=== PATIENT | female | born 1990 | race Caucasian/White ===

== ENCOUNTER → 2018-03-29 15:13 | Outpatient (CLI) | payer OTHER, SELFPAY ==
[2016-11-13 22:28] VITALS: BMI 23.5
[2018-03-29 16:47] LABS: Color, Urine Yellow (Yellow); Glucose, Dipstick Normal (Normal); Ketone-Dipstick Negative (Negative); Leukocyte Esterase-Dipstick Negative /ul (Negative); Nitrite-Dipstick Negative (Negative); Occult Blood-Urine Negative /ul (Negative); Protein-Dipstick Negative (Negative); Urine Bilirubin Dipstick Negative (Negative); Urine Clarity Clear (Clear); Urine Urobilinogen Normal (Normal)
[2018-03-29 17:10] LABS: Amphetamine Urine VISTA NEGATIVE (<1000 ng/mL); Barbiturate Urine VISTA NEGATIVE (< 200 ng/mL); Benzodiazepine Urine VISTA NEGATIVE (< 200 ng/mL); Cocaine Urine VISTA NEGATIVE (< 300 ng/mL); Ecstacy Urine VISTA NEGATIVE (< 500 ng/mL); Methadone Urine VISTA NEGATIVE (< 300 ng/mL); PCP Urine VISTA NEGATIVE (< 25 ng/mL); THC Urine VISTA NEGATIVE (< 50 ng/mL); Vista UDS pH Range 6
[2018-03-29 17:44] LABS: Absolute Lymphocyte Count 2.31 X10^3/ul (0.83-4.51); Absolute Neutrophil Count 8.3 X10^3/uL (2.0-7.7); Basophil# 0.02 X10^3/uL; Basophil% 0.2 % (0-1); Eosinophil# 0.14 X10^3/uL; Eosinophils% 1.2 % (0-5); Hematocrit 38.1 % (37-47); Hemoglobin 12.5 g/dl (12.0-15.0); Lymphocyte # 2.31 X10^3/ul (4.0); Lymphocyte % 20.6 % (19-41); Mean Corp Hgb Conc 32.8 g/gl (32-36); Mean Corpuscular Hgb 29.3 pg (27.0-32.0); Mean Corpuscular Volume 89.2 fL (81-99); Mean Platelet Vol. 9.8 fl (6.2-12.0); Monocyte# 0.43 X10^3/uL; Monocyte% 3.8 % (0-10); Neutrophil # 8.31 X10^3/uL (2.7-7.7); Neutrophil % 73.9 % (47-70); Platelet Count 280 K/mm3 (150-450); RBC Distribution Width CV 13.2 % (11.6-14.6); RBC Distribution Width SD 41.9 fl (35.1-43.9); Red Blood Count 4.27 M/mm3 (4.2-5.4); White Blood Count 11.2 K/mm3 (4.4-11.0)
[2018-03-29 17:47] LABS: POSITIVE COUNT NO; POSITIVE DIFFERENTIAL NO; POSITIVE MORPHOLOGY NO
[2018-03-29 18:04] LABS: Thyroid Stim Hormone (TSH) 1.56 uIU/mL (0.358-3.74)
[2018-03-29 18:20] LABS: Chlamydia Trachomatis by PCR Negative (Negative); Neisserai gonorrhoeae by PCR Negative (Negative); Probe Check PASS; Sample Adequacy Control PASS; Specimen Processing Control PASS
[2018-03-29 18:54] LABS: HIV - WCH Non-Reactive (Nonreactive); Rubella IgG 74.3 IU/mL
[2018-04-03 03:07] LABS: AFP MoM Value 0.89 (.); AFP Value-EIA 33.1 ng/mL (.); Comment Report (.); DIA MoM Value 1.08 (.); DSR (By Age) 820 (.); DSR (Second Trimester) 2600 (.); Gestat. Age Based On As provided (.); Gestational Age 15.6 WEEKS (.); Insulin Dep Diabetes No (.); Maternal Age At EDD 28.5 yr (.); hCG MoM 1.72 (.)
[2018-04-03 11:35] LABS: HEPATITIS B SURFACE AG Negative (Negative); Hep C Antibodies <0.1 s/co ratio (0.0-0.9)
[2018-04-04 15:18] LABS: HPV HC, High Risk Positive (Negative); HPV Reflexed? YES, CHARGE PATIENT
[2018-04-05 07:38] LABS: Prenatal RPR NONREACTIVE (NONREACTIVE)
== END ==
PROVIDERS: Visit Provider Obstetrics & Gynecology
DX: Z12.4 Encounter for screening for malignant neoplasm of cervix (principal); Z11.3 Encounter for screening for infections with a predominantly sexual mode of transmission; Z34.82 Encounter for supervision of other normal pregnancy, second trimester
CPT/HCPCS: 36415; 80307; 81002; 82105; 82677; 84443; 84702; 85025; 86336; 86703; 86762; 86803; 87340; 87491; 87591; 87624; 88175; G0145

== ENCOUNTER → 2018-06-24 09:32 | Outpatient (CLI) | payer MEDICAID, SELFPAY ==
[2018-06-24 10:56] LABS: Glucose Challenge Gest 1H 50g 109 mg/dL (70-140)
[2018-06-24 11:05] LABS: Hematocrit 31.8 % (37-47); Hemoglobin 9.9 g/dl (12.0-15.0); Mean Corp Hgb Conc 31.1 g/gl (32-36); Mean Corpuscular Hgb 27.1 pg (27.0-32.0); Mean Corpuscular Volume 87.1 fL (81-99); Mean Platelet Vol. 9.5 fl (6.2-12.0); Platelet Count 218 K/mm3 (150-450); RBC Distribution Width CV 13.3 % (11.6-14.6); RBC Distribution Width SD 43.1 fl (35.1-43.9); Red Blood Count 3.65 M/mm3 (4.2-5.4); White Blood Count 10.3 K/mm3 (4.4-11.0)
[2018-06-24 11:15] LABS: Scan Indicated on CBC? Y/N NO
== END ==
PROVIDERS: Visit Provider Obstetrics & Gynecology
DX: Z34.83 Encounter for supervision of other normal pregnancy, third trimester (principal)
CPT/HCPCS: 36415; 82950; 85027

== ENCOUNTER → 2018-08-16 14:04 | Outpatient (CLI) | payer MEDICAID, SELFPAY ==
[2016-11-13 22:28] VITALS: BMI 23.5
== END ==
PROVIDERS: Visit Provider Obstetrics & Gynecology
DX: Z36.85 Encounter for antenatal screening for Streptococcus B (principal)
CPT/HCPCS: 87081

== ENCOUNTER 2018-09-14 16:20 | Inpatient (IN) | payer MEDICAID, SELFPAY ==
[2018-09-14 15:43] VITALS: BMI 25.6
[2018-09-14 16:16] LABS: ROM Internal Control Test YES-OK TO RESULT pt. (Internal QC)
[2018-09-14 16:17] LABS: ROM Patient Test POSITIVE (Negative)
[2018-09-14] MEDS: Lactated Ringers 1,000 ML 50 ML IV ×3 (16:35→20:33)
[2018-09-14 16:54] LABS: Absolute Lymphocyte Count 2.12 X10^3/ul (0.83-4.51); Absolute Neutrophil Count 11.4 X10^3/uL (2.0-7.7); Basophil# 0.02 X10^3/uL; Basophil% 0.1 % (0-1); Eosinophil# 0.06 X10^3/uL; Eosinophils% 0.4 % (0-5); Hematocrit 38.3 % (37-47); Hemoglobin 12.9 g/dl (12.0-15.0); Lymphocyte # 2.12 X10^3/ul (4.0); Lymphocyte % 14.7 % (19-41); Mean Corp Hgb Conc 33.7 g/gl (32-36); Mean Corpuscular Hgb 30.1 pg (27.0-32.0); Mean Corpuscular Volume 89.5 fL (81-99); Mean Platelet Vol. 10.1 fl (6.2-12.0); Monocyte# 0.79 X10^3/uL; Monocyte% 5.5 % (0-10); Neutrophil # 11.37 X10^3/uL (2.7-7.7); Neutrophil % 78.9 % (47-70); Platelet Count 124 K/mm3 (150-450); RBC Distribution Width CV 15.9 % (11.6-14.6); RBC Distribution Width SD 51.4 fl (35.1-43.9); Red Blood Count 4.28 M/mm3 (4.2-5.4); White Blood Count 14.4 K/mm3 (4.4-11.0)
[2018-09-14 17:04] LABS: POSITIVE COUNT NO; POSITIVE DIFFERENTIAL NO; POSITIVE MORPHOLOGY NO
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
[2018-09-14] MEDS: fentaNYL-bupivacaine (epidural) 100 ML BAG EPIDURAL (18:17)
--- NOTE | 2018-09-14 19:03 | PCM.PN.BLA ---
Progress Note 39 5/7 wk labor SROM Epidural placed. Tapia in palce AVSS EFM 130-140s avg variability. accels noted. category I tracing UCs q 1 1/2-4 mins CX: 6/80/ -1 at 1854 A/P: 37 5/7 wk SROM labor. Adequate progress Epidural in place now. Anticipate
[2018-09-14] MEDS: Oxytocin 30 units/NS 500 ml 30 UNITS/500 ML IV.SOLN 334 UNITS IV (22:10)
[2018-09-14] MEDS: Oxytocin 30 units/NS 500 ml 30 UNITS/500 ML IV.SOLN 167 UNITS IV (22:40)
[2018-09-15 00:13] VITALS: BP 102/53; PULSE 75; RESP 16; TEMP 36.6; O2SAT 100
[2018-09-15 03:16] VITALS: BP 110/59; PULSE 108; RESP 16; TEMP 37.3; O2SAT 96
--- NOTE | 2018-09-15 07:43 | DCINST_ITS ---
Discharge Diet: No Restrictions Discharge Activity: May Shower, May Take a Tub Bath May resume sexual activity in: 4-6 weeks Additional Activity Instructions:: Nothing in the vagina for 4-6 weeks. You may return to work/school in 6 weeks. Additional Instructions: If you experience any of the following, contact your healthcare provider. * Bleeding that soaks a pad every hour for 2 hours * Fever 100.4 or higher * Unrelieved abdominal pain * Problems urinating (including inability to urinate or burning while urinating). * Visual changes * Severe headache * Flu-like symptoms * Pain or redness in one of both of your breasts * Pain, warmth, tenderness or swelling in your legs, especially the calf area * Frequent nausea and vomiting * Symptoms of depression or anxiety If you experience any of the following, call 911 or go to the nearest Emergency Room. * Chest pain * Problems breathing * Seizure activity * Partial or complete paralysis of a body part, slurred speech, weakness or drooping of the face, or a sudden inability to walk or hold your balance Allergies/Adverse Reactions: Allergies No Known Allergies Allergy (Verified 09/14/18 16:02) Medications to take at Discharge No122/Iron/Folic Acid [ Multi Tablet] 1 tab PO DAILY 11/13/16 Ferrous Sulfate [Iron] 325 mg PO DAILY 09/14/18 Please Follow Up With: Brisa Faulkner MD - [phone] When: Call to make an appointment with your doctor in 6 weeks. Test Results: Test results from this visit will be discussed in further detail at your follow- up appointment, if applicable. Proposed Discharge Date: 09/17/18
--- NOTE | 2018-09-15 07:43 | PCM.DCVAG ---
Discharge Diet: No Restrictions Discharge Activity: May Shower, May Take a Tub Bath May resume sexual activity in: 4-6 weeks Additional Activity Instructions:: Nothing in the vagina for 4-6 weeks. You may return to work/school in 6 weeks. Additional Instructions: If you experience any of the following, contact your healthcare provider. Bleeding that soaks a pad every hour for 2 hours Fever 100.4 or higher Unrelieved abdominal pain Problems urinating (including inability to urinate or burning while urinating). Visual changes Severe headache Flu-like symptoms Pain or redness in one of both of your breasts Pain, warmth, tenderness or swelling in your legs, especially the calf area Frequent nausea and vomiting Symptoms of depression or anxiety If you experience any of the following, call 911 or go to the nearest Emergency Room. Chest pain Problems breathing Seizure activity Partial or complete paralysis of a body part, slurred speech, weakness or drooping of the face, or a sudden inability to walk or hold your balance Allergies/Adverse Reactions: Allergies No Known Allergies Allergy (Verified 09/14/18 16:02) Medications to take at Discharge No122/Iron/Folic Acid [ Multi Tablet] 1 tab PO DAILY 11/13/16 Ferrous Sulfate [Iron] 325 mg PO DAILY 09/14/18 Please Follow Up With: Brisa Faulkner MD - [phone] When: Call to make an appointment with your doctor in 6 weeks. Test Results: Test results from this visit will be discussed in further detail at your follow-up appointment, if applicable. Proposed Discharge Date: 09/17/18
--- NOTE | 2018-09-15 07:45 | PCM.OPRPT ---
Vaginal Delivery Maternal Presentation: Active Labor 39 5/7 wk labor Final STACIA: 09/16/18 Final STACIA Source: US <20 weeks Gestational age: 39 Weeks and 5 Days Date of Procedure: 09/14/18 Pre-Operative Diagnosis: 39 5/7 wk labor Post-Operative Diagnosis: Same Surgery/ Procedure Performed: Spontaneous Vaginal Delivery Type of Anesthesia: Epidural Description of Procedure: of a nolasco viable female over intact perineum to 2nd deg laceration.. Head delivered OA. OP and nares bulb suctioned on perineum. No nuchal cord noted. Shoulders delivered easily. to maternal abdomen with spont cry. Ap 8/9 Delayed cord clamping. Cord clamped times two and cut. Placenta delivered easily by spont expulsion, expression.3V normal appearing. intact with trailing membranes. 2nd deg posterior perineal laceration hemostatic, reapproximated with 3-0 Vicryl Rapide No other lacerations, or repair required. Ray Sudhir counts correct EBL 200 cc. Pt and tolerated delivery well. to recovery, stable condition Cord Vessel Description: 3 Vessels Cord Entanglement: None Drain: Tapia to straight drain Estimated Blood Loss: 200 Infant A gender: Female (1 minute): 8 (5 minute): 9 Episiotomy Description: None Laceration: Midline, 2nd degree - reapprox w 3-0 Vicryl Rapide Medications given after delivery: IV Pitocin Complications: None
--- NOTE | 2018-09-15 08:20 | PN.OBGYN_ITS ---
Subjective: PPD#1 Doing well Tired. No concerns voiced otherwise. Pain control adequate - Physical Exam General: Alert, Oriented x3, Cooperative, No apparent distress HEENT: Atraumatic Neck: Supple Abdomen: Soft - Fundus firm, NT , inferior to umbilicus Psych/Mental Status: Normal Affect Vital Signs Temp Pulse Resp BP Pulse Ox 99.2 F H 108 H 16 110/59 L 96 09/15/18 03:16 09/15/18 03:16 09/15/18 03:16 09/15/18 03:16 09/15/18 03:16 Oxygen Delivery Method Room Air Weight: 61.6 kg Body Mass Index (BMI) 25.6 Intake and Output for Last 24 Hours 09/13/18 09/14/18 09/15/18 23:59 23:59 23:59 Intake Total 2574 / 2574 Output Total 125 / 125 1999 Balance -125 / -125 574 / 574 Laboratory Tests Past 24 Hrs 09/14/18 09/14/18 09/14/18 15:44 16:35 16:35 WBC 14.4 H RBC 4.28 Hgb 12.9 Hct 38.3 MCV 89.5 MCH 30.1 MCHC 33.7 RDW 15.9 H RDW Differential 51.4 H Plt Count 124 L MPV 10.1 Immature Gran % (Auto) 0.400 Neut % (Auto) 78.9 H Lymph % (Auto) 14.7 L [place] % (Auto) 5.5 Eos % (Auto) 0.4 Baso % (Auto) 0.1 Absolute Neuts (auto) 11.4 H Absolute Lymphs (auto) 2.12 Total Counted Not Reportable Vag Amniotic Fld Detect POSITIVE H Blood Type A POSITIVE Antibody Screen NEGATIVE Medical Necessity - Tobacco Use Smoking Status: Never smoker Assessment/Plan PPOD#1 Stable. Continue routine pp care.
[2018-09-15] MEDS: Prenatal Vits Tablet 1 TABLET PO (09:40)
[2018-09-15 09:44] VITALS: BP 106/69; PULSE 98; RESP 16; TEMP 37.1; O2SAT 96
[2018-09-15 12:00] VITALS: BP 117/67; PULSE 110; RESP 16; TEMP 37.1; O2SAT 96
[2018-09-15 15:50] VITALS: BP 103/63; PULSE 104; RESP 16; TEMP 37.4; O2SAT 94
[2018-09-15 19:50] VITALS: BP 112/69; PULSE 101; RESP 18; TEMP 36.9
[2018-09-16 02:12] VITALS: BP 101/57; PULSE 83; RESP 16; TEMP 37.1
[2018-09-16 08:17] VITALS: BP 104/68; PULSE 89; RESP 16; TEMP 36.7; O2SAT 98
--- NOTE | 2018-09-16 08:53 | PCM.PN.OB ---
Subjective: PPD#2 Doing well. Minimal pain. Some difficulty with nursing and plans to see service consultant prior to dischg home. Otherwise no concerns. Objective: Sitting up in bed. - Physical Exam General: Alert, Oriented x3, Cooperative, No apparent distress HEENT: Atraumatic, EOMI Abdomen: Soft - Fundus firm NT inferior to umbilicus Psych/Mental Status: Normal Affect Vital Signs Temp Pulse Resp BP Pulse Ox 98.1 F 89 16 104/68 98 09/16/18 08:17 09/16/18 08:17 09/16/18 08:17 09/16/18 08:09/16/18 08:17 Oxygen Delivery Method Room Air Weight: 61.6 kg Body Mass Index (BMI) 25.6 Intake and Output for Last 24 Hours 09/14/18 09/15/18 09/16/18 23:59 23:59 23:59 Intake Total 2574 / 2574 Output Total 125 / 125 1999 Balance -125 / -125 574 / 574 Medical Necessity - Tobacco Use Smoking Status: Never smoker Assessment/Plan PPOD#2 Stable. Dischg home today. information systems consultant requested prior to dischg. RTO in 6 wk for pp check.
[2018-09-16] MEDS: Prenatal Vits Tablet 1 TABLET PO (09:42)
[2018-09-16 13:40] VITALS: BP 101/70; PULSE 86; RESP 16; TEMP 36.9; O2SAT 98
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
== END 2018-09-16 14:30 | disposition home or self-care (01) | DRG 560 ==
LOC: WPOUT 16:25
PROVIDERS: Admitting Provider Obstetrics & Gynecology; Visit Provider Obstetrics & Gynecology
DX: O99.02 Anemia complicating childbirth (principal); D64.9 Anemia, unspecified; O70.1 Second degree perineal laceration during delivery; Z79.899 Other long term (current) drug therapy; Z87.442 Personal history of urinary calculi; Z3A.39 39 weeks gestation of pregnancy; Z37.0 Single live birth
CPT/HCPCS: 59025; 59050; 84112; 85025; 86850; 86900; 99218; J7120; G0378

== ENCOUNTER 2021-10-11 16:46 | Emergency (ER) | payer BC, MEDICAID, SELFPAY ==
[2021-10-11 16:47] VITALS: BP 147/101; PULSE 121; RESP 18; TEMP 36.4; O2SAT 100; BMI 19.3
--- NOTE | 2021-10-11 17:50 | CT_ITS ---
STUDY: CT ABDOMEN AND PELVIS WITH CONTRAST ENHANCEMENT OF 1846 HOURS ON 10/11/2021 REASON FOR EXAM: 31-year-old female with right lower quadrant pain. RADIATION DOSAGE (If Supplied By Facility): CTDIvol = ( 7.50 ) mGy, DLP = ( 232.93 ) mGycm. TECHNIQUE: Transaxial images were obtained from the dome of the diaphragm to the symphysis pubis without oral contrast. 100 mL of Isovue-300 was administered intravenously. Sagittal and coronal images were reconstructed. Individualized dose optimization techniques were used for this CT. COMPARISON: None. FINDINGS: The visualized lung bases are unremarkable. The visualized portions of the heart are within normal limits. Normal liver. Normal gallbladder and extrahepatic biliary system; no cholelithiasis or cholecystitis.. Normal spleen. Normal pancreas; no pancreatitis or pancreatic mass lesions.. Normal bilateral adrenal glands. Mildly ptotic right kidney. Otherwise, normal kidneys without obstructive uropathy or pyelonephritis. Normal visualized stomach. Normal small intestine. No diverticulitis, colitis, or intestinal obstruction. The appendix is visualized and appears normal; no appendicitis. Appendix is best visualized on sagittal images 51 through 54.. Normal abdominal aorta. Normal inferior vena cava. Normal retroperitoneum. Normal urinary bladder with a mildly thickened wall that may be indicative of a cystitis.. Mildly enlarged heterogeneous uterus with endometrial cavity measuring 19 mm. Presence of a 3.6 cm in diameter right ovarian cyst. Presence of a 3.3 cm in diameter left ovarian cyst. Normal abdominal wall. Normal osseous structures. CT/Abdomen/Pelvis W IV Cont ONLY IMPRESSION: 1. 3.6 cm in diameter right ovarian cyst and 3.3 cm in diameter left ovarian cyst. 2. Mildly enlarged heterogeneous uterus with an endometrial cavity measuring 19 mm. 3. No appendicitis, diverticulitis, colitis, or intestinal obstruction. 4. Mildly ptotic right kidney. Otherwise, normal kidneys without obstructive uropathy or pyelonephritis. 5. No cholecystitis or pancreatitis. 6. Mild lumbar lordosis. No osseous abnormalities. Electronically Signed: Madi Matias MD at 20:08 EDT ,
--- NOTE | 2021-10-11 17:52 | ED.VIS.GI ---
HPI HPI - GI History of Present Illness Chief Complaint: Abd Pain Informant: patient Abdominal Pain/Flank Pain Onset: Days Context: Gradual Onset Timing: Continuous Quality: Aching and Cramping Location: RLQ Current Severity: Mild Maximum Severity: Moderate Worsened by: Nothing Relieved by: Nothing Nausea/Vomiting/Emesis GI Symptom: Positive for Nausea; Negative for Vomiting Onset: Today Severity: Mild Diarrhea/Melena/Hematochezia GI Symptom: Negative for Diarrhea, Melena or Hematochezia Associated Symptoms Associated Symptoms: Negative for Dysuria, Frequency, Hematuria or Urgency LMP: Approximately 3 weeks ago. Narrative Narrative: 31-year-old female history of prior ovarian cyst. G2, P2 Ab0. Prior kidney stone. Symptoms have right lower quadrant abdominal pain since around last Sunday. Nausea but no vomiting or diarrhea. No fever. No dysuria or hematuria. Last menstrual period was about 3 weeks ago. Denies any vaginal bleeding or discharge. Still has her appendix. Denies any trauma. No fever or weight loss. Prior similar symptoms: Yes Recent Illness/Hospitalization: No PFSH PFSH Medical History Ovarian cyst no medical history Allergy/AdvReac Type Severity Reaction Status Date / Time No Known Allergies Allergy Verified 09/14/18 16:02 Social History Smoking Status: Never smoker ROS ROS ED ROS Narrative Abdominal pain. Nausea. Review of Systems ROS Unobtainable: Denies due to encephalopathy Constitutional Constitutional ED: Denies chills or fever(s) ENT ENT ED: Denies ear pain Cardiovascular Cardiovascular: Denies chest pain Respiratory/Chest Respiratory/Chest: Denies cough or dyspnea Gastrointestinal Gastrointestinal: Reports abdominal pain and nausea; Denies constipation, diarrhea, melena or vomiting Genitourinary Genitourinary ED: Denies dysuria or hematuria Musculoskeletal Musculoskeletal: Denies arthralgias Integumentary Denies abscess Neurologic Neurologic: Denies headache(s) Psychiatric Psychiatric: Denies anxiety Endocrine Endocrinology: Denies polydipsia Hematologic/Lymphatic Hematologic/Lymphatic: Denies easy bleeding Allergic/Immunologic Allergic/Immunologic ED: Denies mouth swelling EXAM Physical Exam Narrative Exam Narrative: 31-year-old female no acute distress sitting upright in bed. Vital signs are stable afebrile. H EENT exam unremarkable. Moist remembers. Neck nontender. Lungs clear to auscultation. Heart regular rhythm no murmur. Rate about 110. Abdomen soft mild tenderness right lower quadrant. Not specifically McBurney's point. No peritoneal signs. No hernia or, no mass. No obstruction. Right upper, left upper and left lower quadrants are unremarkable. Moving all 4 extremities. Back nontender. Neurologically awake and alert. Const Vital Signs: 10/11/21 16:47 10/11/21 16:47 Temperature 97.5 F L 97.5 F L Temperature Source Temporal Temporal Pulse Rate 121 H 121 H Respiratory Rate 18 18 Blood Pressure 147/101 H 147/101 H Blood Pressure Mean 116 116 Pulse Ox 100 100 Oxygen Delivery Method Room Air Room Air Positive well nourished and well developed; Negative for obese, cachectic, contractures or unkempt General Appearance ED: well developed and NAD; Negative for unkempt, cachectic, contractures or pallor Nutritional Appearance: Negative for cachectic or obese HEENT Reports moist mucous membranes normocephalic and atraumatic; Negative for trauma or tenderness Eyes PERRL and EOMs intact bilaterally General Eye ED: Negative for pale conjunctiva or scleral icterus Neck no lymphadenopathy, supple and no JVD General: Negative for tenderness Carotids: Negative for other Lymph Lymphatic: Negative for other Resp normal respiratory effort and clear to auscultation bilaterally Effort and Inspection: Negative for respiratory distress Auscultation: Negative for rales, rhonchi or wheezes Cardio regular rhythm, S1 normal heart sound, S2 normal heart sound and no murmurs; Negative for regular rate Rate: tachycardic Rhythm: Negative for abnormal rhythm GI non-distended and no masses; Negative for non-tender Inspection: Negative for abdominal distention Auscultation: normoactive bowel sounds Palpation: soft and tender; Negative for guarding, rigid, hepatomegaly, splenomegaly, hernia, mass or pulsatile mass Back/Spine no CVA tenderness General Back: Negative for CVA tenderness Cervical Spine: Negative for cervical spine tenderness Thoracic Spine / Upper Back: Negative for thoracic spinal tenderness Lumbar Spine / Lower Back: Negative for lumbar spinal tenderness Coccyx: Negative for other Extremity full ROM General Extremety ED: Negative for edema or tenderness General Extremity: Negative for edema Neuro CN's II-XII intact bilaterally, moves all extremities and no sensory deficits noted Sensorium / Orientation: alert, oriented to person, oriented to place and oriented to time; Negative for orientation impaired, confused, lethargic or stuporous Motor Exam: strength 5/5 throughout Psych mental status grossly normal and thought process normal Appearance: Negative for unkempt Attitude: No agitated Mood & Affect: Negative for depressed or anxious Skin no wounds General Skin Exam: Negative for jaundice or pallor Lesions: no lesions Rashes: no rashes Trauma: Negative for abrasion Nails: Negative for discolored MDM MDM MDM Narrative Medical decision making narrative: 31-year-old female right lower quadrant abdominal pain. Differential includes ovarian cyst, UTI, or ectopic or appendicitis. Clinically I think this might be an ovarian cyst. CAT scan labs are pending. She did not want thing for pain and nausea. Repeat exam patient will be discharged home. I went over her test results and CAT scan with her. Tylenol Motrin for pain for ovarian cyst. 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 Lab Data Attestation: I reviewed the patient's lab results. Lab results narrative: CBC normal white count of 10 H&H of 13 and 40. Platelets 251. Electrolytes gap is 6 normal BUN and creatinine. Normal liver enzymes. Serum test negative. Urinalysis negative. No white nor red cells. No nitrites. CAT scan shows a 3.6 cm right ovarian cyst and a 3.3 cm left ovarian cyst. Otherwise no acute abnormality. No appendicitis. Labs: Laboratory Results - last 24 hr 10/11/21 10/11/21 10/11/21 17:58 17:58 17:58 WBC 10.5 RBC 4.37 Hgb 13.6 Hct 40.8 MCV 93.4 MCH 31.1 MCHC 33.3 RDW Std Deviation 45.3 H RDW Coeff of Nayan 13.2 Plt Count 251 MPV 9.5 Immature Gran % (Auto) 0.200 Neut % (Auto) 66.1 Lymph % (Auto) 26.0 [place] % (Auto) 6.1 Eos % (Auto) 1.1 Baso % (Auto) 0.5 Absolute Neuts (auto) 7.0 Absolute Lymphs (auto) 2.74 Nucleated RBC % 0 Sodium 136 Potassium 4.0 Chloride 103 Carbon Dioxide 27.0 Anion Gap 6 BUN 14 Creatinine 0.65 Estim Creat Clear Calc 91.86 Est GFR (MDRD) Af Amer 137 Est GFR (MDRD) Non-Af 113 BUN/Creatinine Ratio 21.6 H Glucose 101 Calcium 8.9 Total Bilirubin 0.70 AST 14 L ALT 19 Alkaline Phosphatase 61 Total Protein 7.0 Albumin 3.6 Globulin 3.4 Albumin/Globulin Ratio 1.1 Serum , Qual NEGATIVE Urine Color Urine Clarity Urine pH Ur Specific [place] Urine Protein Urine Glucose (UA) Urine Ketones Urine Occult Blood Urine Nitrite Urine Bilirubin Urine Urobilinogen Ur Leukocyte Esterase Urine RBC Urine WBC Ur Squamous Epith Cells Urine Bacteria Urine Mucus 10/11/21 18:25 WBC RBC Hgb Hct MCV MCH MCHC RDW Std Deviation RDW Coeff of Nayan Plt Count MPV Immature Gran % (Auto) Neut % (Auto) Lymph % (Auto) [place] % (Auto) Eos % (Auto) Baso % (Auto) Absolute Neuts (auto) Absolute Lymphs (auto) Nucleated RBC % Sodium Potassium Chloride Carbon Dioxide Anion Gap BUN Creatinine Estim Creat Clear Calc Est GFR (MDRD) Af Amer Est GFR (MDRD) Non-Af BUN/Creatinine Ratio Glucose Calcium Total Bilirubin AST ALT Alkaline Phosphatase Total Protein Albumin Globulin Albumin/Globulin Ratio Serum , Qual Urine Color Yellow Urine Clarity Clear Urine pH 6.0 Ur Specific [place] 1.020 Urine Protein 15 H Urine Glucose (UA) Normal Urine Ketones 15 H Urine Occult Blood Negative Urine Nitrite Negative Urine Bilirubin Negative Urine Urobilinogen 1 H Ur Leukocyte Esterase Negative Urine RBC 0-5 SEEN Urine WBC 0 SEEN Ur Squamous Epith Cells 5-10 SEEN Urine Bacteria 2+ Urine Mucus 0 SEEN Radiography Diagnostic Testing: Clinical Impression(s) from Imaging Studies Abdomen/Pelvis CT 10/11/21 17:50 IMPRESSION: 1. 3.6 cm in diameter right ovarian cyst and 3.3 cm in diameter left ovarian cyst. 2. Mildly enlarged heterogeneous uterus with an endometrial cavity measuring 19 mm. 3. No appendicitis, diverticulitis, colitis, or intestinal obstruction. 4. Mildly ptotic right kidney. Otherwise, normal kidneys without obstructive uropathy or pyelonephritis. 5. No cholecystitis or pancreatitis. 6. Mild lumbar lordosis. No osseous abnormalities. Electronically Signed: Madi Matias MD at 20:08 EDT , Discharge Plan Triage Chief Complaint: Abd Pain ED Provider: Mickey Sullivan Dx/Rx/DC Orders Clinical Impression: Ovarian cyst, Abdominal pain Instructions: ED Ovarian Cyst Primary Care Provider: Care Physician,No Primary Referrals: Rayna Turcios MD [Med Staff - Active Staff] - 1 Week if not improving Care Physician,No Primary [Primary Care Provider] - Activity Restrictions/Additional Instructions: Motrin and Tylenol for pain. You have a 3.6 cm ovarian cyst on the right and a 3.3 on the left. He should progressively improve. 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 Disposition Disposition: Home, Self Care
[2021-10-11 18:11] LABS: Absolute Lymphocyte Count 2.74 X10^3/uL (0.83-4.51); Basophil# 0.05 X10^3/uL; Basophil% 0.5 % (0-1); Eosinophil# 0.12 X10^3/uL; Eosinophils% 1.1 % (0-5); Hematocrit 40.8 % (37-47); Hemoglobin 13.6 g/dL (12.0-15.0); Lymphocyte # 2.74 X10^3/ul (0.83-4.51); Mean Corp Hgb Conc 33.3 g/dL (32-36); Mean Corpuscular Hgb 31.1 pg (27.0-32.0); Mean Corpuscular Volume 93.4 fL (81-99); Mean Platelet Vol. 9.5 fl (6.2-12.0); Monocyte# 0.64 X10^3/uL; Monocyte% 6.1 % (0-10); NRBC Flagged by Analyzer 0 % (0-5); Neutrophil # 6.95 X10^3/uL (2.7-7.7); Neutrophil % 66.1 % (47-70); Platelet Count 251 K/mm3 (150-450); RBC Distribution Width CV 13.2 % (11.6-14.6); RBC Distribution Width SD 45.3 fl (35.1-43.9); Red Blood Count 4.37 M/mm3 (4.2-5.4); White Blood Count 10.5 K/mm3 (4.4-11.0)
[2021-10-11 18:32] LABS: ALB/GLOB Ratio 1.1 RATIO (0.9-2.4); AST(SGOT) 14 U/L (15-37); Alanine Aminotransfer ALT/SGPT 19 U/L (13-56); Albumin, Serum 3.6 g/dL (3.2-5.0); Alkaline Phosphatase 61 U/L (45-117); Anion Gap 6 (5-15); BUN 14 mg/dL (7-18); BUN/Creat Ratio 21.6 RATIO (10-20); Calcium,Total 8.9 mg/dL (8.5-10.1); Chloride 103 mmol/L (98-107); Creatinine, Serum 0.65 mg/dL (0.55-1.02); EST Glomerular Filtration Rate 113 mL/min (>60); Est Glom Filt Rate - Afr Amer 137 mL/min (>60); Estimated Creatinine Clearance 91.86 ml/min; Globulin 3.4 g/dL (2.2-4.2); Glucose 101 mg/dL (74-106); Sodium Level 136 mmol/L (136-145)
[2021-10-11 18:47] LABS: Mucous, Urine 0 SEEN /hpf (<or=2+); White Blood Cells 0 SEEN /hpf (0-5)
[2021-10-11 18:51] LABS: Color, Urine Yellow (Yellow); Glucose, Dipstick Normal (Normal); Ketone-Dipstick 15 mg/dl (Negative); Leukocyte Esterase-Dipstick Negative /ul (Negative); Nitrite-Dipstick Negative (Negative); Occult Blood-Urine Negative /ul (Negative); Protein-Dipstick 15 mg/dl (Negative); Urine Bilirubin Dipstick Negative (Negative); Urine Clarity Clear (Clear); Urine Urobilinogen 1 mg/dl (Normal)
[2021-10-11 19:08] LABS: Bacteria 2+ /hpf (None Seen); Red Blood Cells-Urine 0-5 SEEN /hpf (0-5); Squamous Epithelial Cells - UA 5-10 SEEN /hpf (5-10)
[2021-10-11 19:21] LABS: Internal QC Validated? YES +Cl - CLEAR BKGD; Pregnancy, Serum, hCG Quali. NEGATIVE Negative
[2021-10-11 20:42] VITALS: BP 116/85; PULSE 92; RESP 18; O2SAT 100
== END 2021-10-11 20:43 | disposition home or self-care (01) ==
PROVIDERS: Emergency Provider Emergency Medicine; Visit Provider Emergency Medicine
DX: N83.201 Unspecified ovarian cyst, right side (principal); N83.202 Unspecified ovarian cyst, left side; Z87.442 Personal history of urinary calculi; R10.9 Unspecified abdominal pain
CPT/HCPCS: 74177; 80053; 81001; 84703; 85025; 99283; Q9967; A4216

== ENCOUNTER 2024-04-29 22:27 | Emergency (ER) | payer MEDICAID, SELFPAY ==
[2024-04-29 22:28] VITALS: BP 142/104; PULSE 110; RESP 16; TEMP 35.7; O2SAT 99; BMI 21.7
[2024-04-29 22:54] LABS: Absolute Lymphocyte Count 4.27 X10^3/uL (0.83-4.51); Absolute Neutrophil Count 4.4 X10^3/uL (2.0-7.7); Basophil# 0.12 X10^3/uL; Basophil% 1.2 % (0-1); Eosinophils% 2.1 % (0-5); Hematocrit 39.8 % (37-47); Hemoglobin 12.9 g/dL (12.0-15.0); Lymphocyte # 4.27 X10^3/ul (0.83-4.51); Lymphocyte % 44.3 % (19-41); Mean Corp Hgb Conc 32.4 g/dL (32-36); Mean Corpuscular Hgb 29.6 pg (27.0-32.0); Mean Corpuscular Volume 91.3 fL (81-99); Mean Platelet Vol. 8.6 fl (6.2-12.0); Monocyte% 6.2 % (0-10); NRBC Flagged by Analyzer 0 % (0-5); Neutrophil # 4.41 X10^3/uL (2.7-7.7); Neutrophil % 45.8 % (47-70); Platelet Count 327 K/mm3 (150-450); RBC Distribution Width CV 15.9 % (11.6-14.6); RBC Distribution Width SD 53.3 fl (35.1-43.9); Red Blood Count 4.36 M/mm3 (4.2-5.4); White Blood Count 9.6 K/mm3 (4.4-11.0)
[2024-04-29 23:07] LABS: Internal QC Validated? YES +Cl - CLEAR BKGD; Pregnancy, Serum, hCG Quali. NEGATIVE Negative
[2024-04-29 23:12] LABS: Anion Gap 17 (5-15); BUN 7 mg/dL (4-19); BUN/Creat Ratio 10.7 RATIO (10-20); Carbon Dioxide 21.1 mmol/L (22.0-29.0); Chloride 103 mmol/L (96-108); Creatinine, Serum 0.6 mg/dL (0.6-1.0); EST Glomerular Filtration Rate 119 (>60); Estimated Creatinine Clearance 99.69 ml/min; Glucose 95 mg/dL (70-99); Potassium 3.6 mmol/L (3.3-5.1); Sodium Level 141 mmol/L (133-145)
[2024-04-29 23:28] VITALS: BP 148/79; PULSE 105; RESP 16; O2SAT 99
[2024-04-29 23:32] LABS: Amphetamine Urine NEGATIVE (<1000 ng/mL); Barbiturate Urine NEGATIVE (< 200 ng/mL); Benzodiazepine Urine NEGATIVE (< 200 ng/mL); Buprenorphine Urine NEGATIVE (< 200 ng/mL); Cocaine Urine NEGATIVE (< 300 ng/mL); Fentanyl, Urine NEGATIVE; Methadone Urine NEGATIVE (< 300 ng/mL); Opiates Urine NEGATIVE (< 300 ng/mL); Oxycodone, Urine NEGATIVE (< 100 ng/mL); PCP Urine NEGATIVE (< 25 ng/mL); THC Urine NEGATIVE (< 50 ng/mL)
[2024-04-30] VITALS: PULSE 101; RESP 16; O2SAT 98
--- NOTE | 2024-04-30 00:32 | EX.ED.VIS.PS ---
HPI HPI - Psych History of Present Illness Chief Complaint: Suicidal Informant: patient Onset/Context/Timing Onset: Month(s) Context: Gradual Onset Timing: Waxes and wanes Worsened by: - (Nothing) Relieved by: Nothing Associated Symptoms Associated Symptoms - Psych: Positive for Depressed, Change in sleeping, Suicidal Thoughts and Auditory Hallucinations; Negative for Paranoia or Visual Hallucinations Specific plan (suicidal thought): Hanging self Narrative Narrative: Patient presents with worsening depression and suicidal ideations. Patient states this has been getting worse over the past couple months. Patient states it has been waxing and waning. Patient states she has had intermittent thoughts of hanging herself. Patient states she does not feel like she is really going to do it. Patient states she has been hearing voices. Patient states the voices are telling her negative thoughts. Patient states she has not been sleeping well. Patient denies any paranoid ideations. [facility] Medical History Anxiety Kidney stones Ovarian cyst Home Medications ?Medication ?Instructions ?Recorded ?Last Taken ?Type escitalopram oxalate 20 mg tablet 20 mg PO DAILY 04/30/24 Unknown History hydroxyzine pamoate 25 mg capsule 25 mg PO QHS PRN PRN hallucinations 04/30/24 Unknown History risperidone 0.25 mg tablet 0.25 mg PO DAILY PRN anxiety 04/30/24 Unknown History risperidone 0.5 mg tablet 0.5 mg PO QHS 04/30/24 Unknown History Allergy/AdvReac Type Severity Reaction Status Date / Time No Known Allergies Allergy Verified 04/29/24 22:28 Surgical History no surgical history no surgical history Social History Smoking Status: Former smoker ROS ROS ED Constitutional Constitutional ED: Denies chills or fever(s) Eyes Eyes: Reports blurry vision; Denies change in vision ENT ENT ED: Denies rhinorrhea or sore throat Cardiovascular Cardiovascular: Denies chest pain or palpitations Respiratory/Chest Respiratory/Chest: Reports dyspnea; Denies cough Gastrointestinal Gastrointestinal: Reports nausea and vomiting Genitourinary Genitourinary ED: Denies dysuria or hematuria Musculoskeletal Musculoskeletal: Reports neck pain; Denies back pain Integumentary Denies abscess or rash Neurologic Neurologic: Reports headache(s); Denies weakness Allergic/Immunologic Allergic/Immunologic ED: Denies mouth swelling or urticaria EXAM Physical Exam Const Vital Signs: 04/29/24 22:28 04/29/24 23:28 04/30/24 00:00 Temperature 96.3 F L Temperature Source Temporal Pulse Rate 110 H 105 H 101 H Respiratory Rate 16 16 16 Blood Pressure 142/104 H 148/79 H Blood Pressure Mean 116 102 Pulse Ox 99 99 98 Oxygen Delivery Method Room Air Room Air Room Air 04/30/24 01:00 04/30/24 02:11 Temperature Temperature Source Pulse Rate 105 H 110 H Respiratory Rate 20 H 18 Blood Pressure 107/70 Blood Pressure Mean 82 Pulse Ox 100 97 Oxygen Delivery Method Room Air Room Air Positive well nourished and well developed General Appearance ED: well developed and NAD HEENT Reports moist mucous membranes Neck supple and no JVD Resp normal respiratory effort and clear to auscultation bilaterally Cardio Rate: regular rate Rhythm: regular rhythm GI non-distended Palpation: soft and tender RUQ; Negative for guarding or hepatomegaly Neuro oriented x3, CN's II-XII intact bilaterally and no sensory deficits noted [place] Coma Scale: document GCS findings Spontaneous Obeys Commands Oriented 15 Sensorium / Orientation: alert Motor Exam: strength 5/5 throughout Psych cooperative Appearance: grossly normal Attitude: calm and withdrawn Activity / Motor Behavior: avoids eye contact Speech: minimal and soft Mood & Affect: depressed and flat affect Thought Process: normal thought process Thought Content: suicidality, No homicidality, No phobia(s), No delusion(s) and hallucination(s) Positive for auditory MDM MDM MDM Narrative Medical decision making narrative: Medical screening labs will be obtained. CBC will be obtained to assess for leukocytosis and anemia. Basic metabolic profile will be obtained to assess for electrolyte abnormality and renal function. Serum hCG will be obtained to assess for . Serum alcohol level will be obtained to assess for alcohol intoxication. Urine drug screen will be obtained to assess for substance abuse. Lab Data Attestation: I reviewed the patient's lab results. Lab results narrative: CBC was reviewed and was within normal limits. Basic metabolic profile was reviewed and was essentially within normal limits. Serum hCG was reviewed and was negative. Urine drug screen was reviewed and was negative. Serum alcohol level was reviewed and was elevated at 253. Labs: Laboratory Results - last 24 hr 04/29/24 04/29/24 22:42 22:47 WBC 9.6 RBC 4.36 Hgb 12.9 Hct 39.8 MCV 91.3 MCH 29.6 MCHC 32.4 RDW Std Deviation 53.3 H RDW Coeff of Nayan 15.9 H Plt Count 327 MPV 8.6 Immature Gran % (Auto) 0.400 Neut % (Auto) 45.8 L Lymph % (Auto) 44.3 H [place] % (Auto) 6.2 Eos % (Auto) 2.1 Baso % (Auto) 1.2 H Absolute Neuts (auto) 4.4 Absolute Lymphs (auto) 4.27 Nucleated RBC % 0 Sodium 141 Potassium 3.6 Chloride Direct 103 Carbon Dioxide 21.1 L Anion Gap 17 H BUN 7 Creatinine 0.6 Estim Creat Clear Calc 99.69 Est GFR (MDRD) Non-Af 119 BUN/Creatinine Ratio 10.7 Glucose 95 Calcium 9.0 Serum , Qual NEGATIVE Urine Opiates Screen NEGATIVE U Buprenorphine Qual NEGATIVE Ur Oxycodone Screen NEGATIVE Urine Methadone Screen NEGATIVE Urine Fentanyl Screen NEGATIVE Ur Barbiturates Screen NEGATIVE Ur Phencyclidine Scrn NEGATIVE Ur Amphetamines Screen NEGATIVE U Benzodiazepines Scrn NEGATIVE Urine Cocaine Screen NEGATIVE U Cannabinoids Screen NEGATIVE Ethyl Alcohol 253.0 H Treatment and Re-Evaluation Narrative: Suicide precautions were maintained. Because of the elevated alcohol level, repeat alcohol level was redrawn at 0645. If this is normal, crisis will be contacted to evaluate the patient. Care of the patient will be turned over to the oncoming physician pending crisis evaluation. Discharge Plan Triage Chief Complaint: Suicidal ED Provider: Silverio Wilson Dx/Rx/DC Orders Clinical Impression: Depression, Alcohol intoxication Prescriptions: No Action hydroxyzine pamoate 25 mg capsule 25 mg PO QHS PRN PRN (Reason: hallucinations) escitalopram oxalate 20 mg tablet 20 mg PO DAILY risperidone 0.25 mg tablet 0.25 mg PO DAILY PRN (Reason: anxiety) risperidone 0.5 mg tablet 0.5 mg PO QHS Primary Care Provider: Care Physician,No Primary Referrals: Care Physician,No Primary [Primary Care Provider] - Print Language: Slovenian
[2024-04-30 01:00] VITALS: PULSE 105; RESP 20; O2SAT 100
[2024-04-30 02:11] VITALS: BP 107/70; PULSE 110; RESP 18; O2SAT 97
[2024-04-30 06:44] VITALS: BP 115/70; PULSE 100; RESP 18; TEMP 36.6; O2SAT 97
[2024-04-30 07:57] LABS: Alcohol, Blood (Medical)-Serum 93.6 mg/dL (<=10.0)
--- NOTE | 2024-04-30 08:06 | ED.RN ---
CALLED CRISIS AT 0803 MEDICALLY CLEARED. TALKED TO MONIQUE. SHE WILL WORK ON PLACEMENT. ASKED FOR ME TO FAX ALL HER INFO OVER. I DID.
--- NOTE | 2024-04-30 10:31 | ED.RN ---
GOING TO SAFETY PLAN WITH REFERRAL TO IOP
== END 2024-04-30 12:34 | disposition home or self-care (01) ==
PROVIDERS: Emergency Provider Emergency Medicine; Visit Provider Emergency Medicine
DX: F10.129 Alcohol abuse with intoxication, unspecified (principal); R45.851 Suicidal ideations; R44.3 Hallucinations, unspecified; F32.A Depression, unspecified; Z87.891 Personal history of nicotine dependence; Y90.8 Blood alcohol level of 240 mg/100 ml or more; Z87.442 Personal history of urinary calculi
CPT/HCPCS: 36415; 80048; 80307; 82077; 84703; 85025; 99283

== ENCOUNTER 2024-05-12 16:25 | Emergency (ER) | payer MEDICAID, SELFPAY ==
[2024-05-12 16:27] VITALS: BP 112/71; PULSE 113; RESP 18; TEMP 36.2; O2SAT 97; BMI 22.1
--- NOTE | 2024-05-12 16:46 | EX.ED.VIS.PS ---
HPI HPI - Psych History of Present Illness Chief Complaint: Mental Health Narrative Narrative: 34-year-old female past medical history of depression and anxiety was seen in the emergency department 2 weeks ago where she states it was recommended that she be placed for inpatient psychiatric evaluation and treatment. However, she elected for intensive outpatient therapy going 3 times a week for at least 3 hours. She started her second week of therapy today, and while she was in a group session, people talking about their depression made her feel worse. She feels like she needs more intensive therapy. She states the crisis recommended that she come to the emergency department for medical clearance for placement. She states that she is not having bad thoughts or suicidal thoughts currently. She presents with her and her 2 children. She is here for medical clearance for placement in a psychiatric facility. [facility] Medical History Anxiety Kidney stones Ovarian cyst Home Medications ?Medication ?Instructions ?Recorded ?Last Taken ?Type escitalopram oxalate 20 mg tablet 20 mg PO DAILY 04/30/24 Unknown History risperidone 0.25 mg tablet 0.25 mg PO DAILY PRN anxiety 04/30/24 Unknown History risperidone 0.5 mg tablet 0.5 mg PO QHS 04/30/24 Unknown History Allergy/AdvReac Type Severity Reaction Status Date / Time No Known Allergies Allergy Verified 05/12/24 16:27 Social History Smoking Status: Unknown if ever smoked ROS ROS ED ROS Narrative Review of systems positive for increasing depression and anxiety. Denies suicidal ideation or bad thoughts. Feels needs more intensive therapy than outpatient. No chest pain or shortness of breath, no nausea or vomiting. Last menstrual period approximately 1 week ago. Denies any physical symptoms except for increasing depression. EXAM Physical Exam Narrative Exam Narrative: Afebrile. Vital signs noted. Nontoxic-appearing. Cardiovascular examination reveals a regular rate and rhythm. Lungs are clear to auscultation bilaterally. The abdomen is soft and nontender with normoactive bowel sounds. Neurological examination is nonfocal and nonlateralizing. Psychiatric examination reveals flat to depressed affect. Denies suicidal ideation. No active hallucinations or internal stimulation. Const Vital Signs: 05/12/24 16:27 Temperature 97.2 F L Temperature Source Oral Pulse Rate 113 H Respiratory Rate 18 Blood Pressure 112/71 Blood Pressure Mean 84 Pulse Ox 97 Oxygen Delivery Method Room Air MDM MDM MDM Narrative Medical decision making narrative: I reviewed her prior records. I do not feel that differential diagnosis is applicable in this case. She is here for psychiatric placement as she is failing outpatient intensive treatment and is becoming more depressed. Medical clearance labs will be obtained again. 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 I reviewed her laboratory work and she has a normal white count of 7.9 with hemoglobin 11.9, platelet count normal at 233. CMP is remarkable for slightly elevated anion gap of 17 which I think is nonspecific as she has normal sodium of 138 and potassium 4.3 with chloride 98 and CO2 23.6. Glucose appropriately elevated at 79. CMP LFTs are grossly unremarkable. Urine for drugs of abuse is negative, but ethanol level elevated at 214. This will be redrawn for medical clearance in approximately 5 to 6 hours. Repeat alcohol level is 48. At this point in time, I do feel she is medically cleared. She is being presented to [facility]. Disposition is transferred in stable condition. However, she may require observation by the overnight physician, Dr. Wally Hayden, as she awaits placement. Patient is in stable condition. History & Record Review Discussion w/independent historian: Patient Lab Data Attestation: I reviewed the patient's lab results. Labs: Laboratory Results - last 24 hr 05/12/24 05/12/24 05/12/24 10:55 17:48 23:05 WBC 7.9 RBC 4.03 L Hgb 11.9 L Hct 36.4 L MCV 90.3 MCH 29.5 MCHC 32.7 RDW Std Deviation 51.9 H RDW Coeff of Nayan 15.7 H Plt Count 233 MPV 8.5 Immature Gran % (Auto) 0.300 Neut % (Auto) 58.7 Lymph % (Auto) 34.6 [place] % (Auto) 4.2 Eos % (Auto) 1.6 Baso % (Auto) 0.6 Absolute Neuts (auto) 4.7 Absolute Lymphs (auto) 2.74 Nucleated RBC % 0 Sodium 138 Potassium 4.3 Chloride 98 Carbon Dioxide 23.6 Anion Gap 17 H BUN 11 Creatinine 0.51 L Estim Creat Clear Calc 117.29 Est GFR (MDRD) Non-Af 126 BUN/Creatinine Ratio 21.8 H Glucose 79 Calcium 9.2 Total Bilirubin 0.48 AST 29 ALT 13 Alkaline Phosphatase 76 Total Protein 7.6 Albumin 4.7 Globulin 2.9 Albumin/Globulin Ratio 1.7 Serum , Qual NEGATIVE Urine Opiates Screen NEGATIVE U Buprenorphine Qual NEGATIVE Ur Oxycodone Screen NEGATIVE Urine Methadone Screen NEGATIVE Urine Fentanyl Screen NEGATIVE Ur Barbiturates Screen NEGATIVE Ur Phencyclidine Scrn NEGATIVE Ur Amphetamines Screen NEGATIVE U Benzodiazepines Scrn NEGATIVE Urine Cocaine Screen NEGATIVE U Cannabinoids Screen NEGATIVE Ethyl Alcohol 214.0 H 48.3 H Discharge Plan Triage Chief Complaint: Mental Health ED Provider: Marcos Villanueva Dx/Rx/DC Orders Clinical Impression: Depression, Anxiety, Failure of outpatient treatment, Acute alcohol intoxication Prescriptions: No Action escitalopram oxalate 20 mg tablet 20 mg PO DAILY risperidone 0.25 mg tablet 0.25 mg PO DAILY PRN (Reason: anxiety) risperidone 0.5 mg tablet 0.5 mg PO QHS Primary Care Provider: Care Physician,No Primary Referrals: Care Physician,No Primary [Primary Care Provider] - Print Language: Bulgarian Disposition Disposition: Psychiatric Hospital or Unit
--- NOTE | 2024-05-12 16:59 | ED.RN ---
Dr Villanueva stated no sitter needed at this time. family at bedside.
[2024-05-12 17:20] LABS: Absolute Lymphocyte Count 2.74 X10^3/uL (0.83-4.51); Absolute Neutrophil Count 4.7 X10^3/uL (2.0-7.7); Basophil# 0.05 X10^3/uL; Basophil% 0.6 % (0-1); Eosinophil# 0.13 X10^3/uL; Eosinophils% 1.6 % (0-5); Hematocrit 36.4 % (37-47); Hemoglobin 11.9 g/dL (12.0-15.0); Lymphocyte # 2.74 X10^3/ul (0.83-4.51); Lymphocyte % 34.6 % (19-41); Mean Corp Hgb Conc 32.7 g/dL (32-36); Mean Corpuscular Hgb 29.5 pg (27.0-32.0); Mean Corpuscular Volume 90.3 fL (81-99); Mean Platelet Vol. 8.5 fl (6.2-12.0); Monocyte# 0.33 X10^3/uL; Monocyte% 4.2 % (0-10); NRBC Flagged by Analyzer 0 % (0-5); Neutrophil # 4.65 X10^3/uL (2.7-7.7); Neutrophil % 58.7 % (47-70); Platelet Count 233 K/mm3 (150-450); RBC Distribution Width CV 15.7 % (11.6-14.6); RBC Distribution Width SD 51.9 fl (35.1-43.9); Red Blood Count 4.03 M/mm3 (4.2-5.4); White Blood Count 7.9 K/mm3 (4.4-11.0)
[2024-05-12 17:34] LABS: ALB/GLOB Ratio 1.7 RATIO (0.9-2.4); AST(SGOT) 29 U/L (<=31); Alanine Aminotransfer ALT/SGPT 13 U/L (<=34); Albumin, Serum 4.7 g/dL (3.5-5.0); Alkaline Phosphatase 76 U/L (35-104); Anion Gap 17 (5-15); BUN 11 mg/dL (4-19); BUN/Creat Ratio 21.8 RATIO (10-20); Calcium,Total 9.2 mg/dL (7.6-11.0); Carbon Dioxide 23.6 mmol/L (21.0-32.0); Chloride 98 mmol/L (98-108); Creatinine, Serum 0.51 mg/dL (0.70-1.20); EST Glomerular Filtration Rate 126 (>60); Estimated Creatinine Clearance 117.29 ml/min (50-250); Globulin 2.9 g/dL (2.2-4.2); Glucose 79 mg/dL (70-99); Potassium 4.3 mmol/L (3.3-5.1); Protein, Total 7.6 g/dL (5.9-8.4); Sodium Level 138 mmol/L (133-145); Total Bilirubin 0.48 mg/dL (0.00-1.30)
[2024-05-12 18:09] LABS: Amphetamine Urine NEGATIVE (<1000 ng/mL); Barbiturate Urine NEGATIVE (< 200 ng/mL); Benzodiazepine Urine NEGATIVE (< 200 ng/mL); Buprenorphine Urine NEGATIVE (< 200 ng/mL); Cocaine Urine NEGATIVE (< 300 ng/mL); Fentanyl, Urine NEGATIVE; Methadone Urine NEGATIVE (< 300 ng/mL); Opiates Urine NEGATIVE (< 300 ng/mL); Oxycodone, Urine NEGATIVE (< 100 ng/mL); PCP Urine NEGATIVE (< 25 ng/mL); THC Urine NEGATIVE (< 50 ng/mL)
--- NOTE | 2024-05-12 18:15 | ED.RN ---
called lab to inquire about serum preg. they are looking for tube
[2024-05-12 18:34] LABS: Internal QC Validated? YES +Cl - CLEAR BKGD; Pregnancy, Serum, hCG Quali. NEGATIVE Negative
--- NOTE | 2024-05-12 19:03 | CM.ED ---
Social Work SW introduced self to patient and explained reason for visit which was to update patient on placement process and potential time before being transferred. Patient voiced understanding, no further needs identified. Socorro Marc, [employer], LIGHTING FIXTURES DECORATOR
[2024-05-12] MEDS: RisperiDONE 0.5 MG Tablet PO (23:03)
[2024-05-12 23:30] LABS: Alcohol, Blood (Medical)-Serum 48.3 mg/dL (<=10.0)
[2024-05-13 00:48] VITALS: BP 130/91; PULSE 62; RESP 18; O2SAT 98
== END 2024-05-13 03:15 ==
PROVIDERS: Emergency Provider Emergency Medicine; Referring Provider Emergency Medicine; Visit Provider Emergency Medicine
DX: F32.A Depression, unspecified (principal); F41.9 Anxiety disorder, unspecified; F10.129 Alcohol abuse with intoxication, unspecified; Y90.7 Blood alcohol level of 200-239 mg/100 ml; Z87.442 Personal history of urinary calculi
CPT/HCPCS: 36415; 80053; 80307; 82077; 84703; 85025; 99285